=== PATIENT | male | born 1975 | race Caucasian/White ===

== ENCOUNTER 2020-07-31 08:01 | Emergency (ER) | payer BC ==
[~2020-07-31] VITALS: Ht 182.9 cm; Wt 128.8 kg
[2020-07-31 08:08] VITALS: BP_SYST 119
--- NOTE | 2020-07-31 08:08 | NUR ---
Patient triaged and placed in waiting room. VSS and patient appears in no acute distress at this time. Accompanied by , awaiting available bed, and MD notified of need for MSE.
--- NOTE | 2020-07-31 08:15 | NUR ---
DR LUTHER EVALUATING PT IN TRIAGE ROOM
--- NOTE | 2020-07-31 08:30 | NUR ---
PT STATES THAT HE WOKE UP THIS MORNING AND FELT "OFF", STATES HE WAS JAZMINE SWEATY WITH A LOW TEMP OF 96.4. STATES HE ALMOST HAD A NEAR SYNCOPAL EPISODE. PT STATES HE FEELS BETTER NOW.
--- NOTE | 2020-07-31 10:10 | NUR ---
Patient given written and verbal discharge instructions and verbalizes understanding. ER MD discussed with patient the results and treatment provided. Patient in stable condition. ID arm band removed Rx of NONE given. Patient educated on pain management and to follow up with PMD. Pain Scale 0/10. Opportunity for questions provided and answered. Medication side effect fact sheet provided.
== END 2020-07-31 10:10 | disposition home or self-care (01) ==
LOC: SED 08:01
DX: R55 Syncope and collapse (principal); Z90.49 Acquired absence of other specified parts of digestive tract
CPT/HCPCS: 93005; 99283